=== PATIENT | female | born 1990 | race Caucasian/White ===

== ENCOUNTER 2022-07-16 20:06 | Emergency (ER) | payer OTHER, BC, SELFPAY ==
[2022-07-16 20:17] VITALS: BP 124/72; PULSE 77; RESP 18; TEMP 37.1; O2SAT 98; BMI 36.0
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
[2022-07-16] MEDS: ACETAMINOPHEN 500 MG TABLET 1000 MG PO (20:53)
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
== END 2022-07-16 22:51 | disposition home or self-care (01) ==
PROVIDERS: Emergency Provider Family Medicine
DX: S01.511A Laceration without foreign body of lip, initial encounter (principal); S06.0X0A Concussion without loss of consciousness, initial encounter; W21.11XA Struck by baseball bat, initial encounter
CPT/HCPCS: 12013; 70450; 70486; 99283; 99284; A9270